=== PATIENT | female | born 1930 | race Caucasian/White ===

== ENCOUNTER 2016-09-25 09:20 | Emergency (ER) | payer MEDICARE, OTHER ==
[~2016-09-25] VITALS: Ht 160 cm; Wt 55.0 kg
[~2016-09-25 09:20] MED LIST: ESTR0.3T PO; LEVO25TA4 PO
[2016-09-25] MEDS ORDERED: CITA20TA5 PO (09:44)
[2016-09-25] MEDS ORDERED: RIVA20TA PO (09:44)
[2016-09-25 10:18] LABS: PATH.CAST-FLAG NOT PRESENT; SPERM-FLAG NOT PRESENT; SRC-FLAG NOT PRESENT; XTAL-FLAG NOT PRESENT; YLC-FLAG NOT PRESENT
[2016-09-25 10:21] LABS: HEMOGLOBIN 12.8 g/dL (11.7-16.4)
[2016-09-25 10:30] LABS: ASPARTATE AMINO TRANSFERASE 22 U/L (15-37); BLOOD UREA NITROGEN 18 mg/dL (7-18)
[2016-09-25 11:35] VITALS: BP 127/71
== END 2016-09-25 12:03 | disposition home or self-care (01) ==
LOC: ED 10:29
DX: F41.0 Panic disorder [episodic paroxysmal anxiety] (principal); G20 Parkinson's disease; F02.80 Dementia in other diseases classified elsewhere, unspecified severity, without behavioral disturbance, psychotic disturbance, mood disturbance, and anxiety; G30.9 Alzheimer's disease, unspecified; E03.9 Hypothyroidism, unspecified
CPT/HCPCS: 36415; 70450; 71010; 80053; 81001; 85025; 87086; 93005